=== PATIENT | female | born 1995 | race Hispanic/Latino ===

== ENCOUNTER 2018-08-08 07:34 | Emergency (ER) | payer BC ==
[~2018-08-08] VITALS: Ht 152.4 cm; Wt 65.0 kg
[2018-08-08 08:17] LABS: HEMATOCRIT 43.8 % (37.0-47.0); HEMOGLOBIN 13.8 g/dl (12.0-16.0); IMMATURE GRANULOCYTES 0.5 % (0.0-5.0); MEAN CELL VOLUME 83.7 fL CALC (80.0-100.0); MEAN CORPUSCULAR HGB 26.4 pG CALC (26.0-32.0); MEAN CORPUSCULAR HGB CONC 31.5 g/L CALC (32.0-36.0); NEUT# 7.48 thou/uL (2.00-7.15); RED BLOOD COUNT 5.23 mill/uL (4.20-5.60); RED CELL DISTRI WIDTH 21.5 % (11.5-15.5)
[2018-08-08] MEDS ORDERED: ANTIBIOTIC (08:28)
[2018-08-08] MEDS ORDERED: FLUCONAZOLE100 MG PO (08:28)
[2018-08-08] MEDS ORDERED: INSULIN PUM1 (08:31)
[2018-08-08] MEDS ORDERED: INSULIN PUM2 (08:31)
[2018-08-08] MEDS ORDERED: CLINDAMYCIN300 M1 PO (08:32)
[2018-08-08 08:58] LABS: ALBUMIN 3.7 g/dL (3.2-5.0); ALKALINE PHOSPHATASE 73 u/l (38-126); AMYLASE < 30 u/l (30-110); ANION GAP 17 (6-22 (CALC)); BILIRUBIN, TOTAL 0.6 mg/dL (0.0-1.4); BUN 12 mg/dL (7-17); BUN/CREATININE RATIO 23 (12-20 (CALC)); CARBON DIOXIDE 21 mmol/l (22-30); CHLORIDE 102 mmol/l (95-108); CREATININE 0.5 mg/dL (0.5-1.0); GFR > 60 ML/MIN (>=60 (CALC)); GFR FOR AFR.AMER. > 60 ML/MIN (>=60 (CALC)); LIPASE 23 u/l (23-300); POTASSIUM 3.9 mmol/l (3.5-5.1); SGOT/AST 18 u/l (14-36); SODIUM 136 mmol/l (137-146); TOTAL PROTEIN 6.6 g/dL (6.3-8.2)
[2018-08-08] MEDS ORDERED: ZOFRAN ODT4 MG PO (09:05)
[2018-08-08 09:20] VITALS: BP 113/70
== END 2018-08-08 09:20 | disposition home or self-care (01) | DRG 639 ==
LOC: ED 07:34
PROVIDERS: Emergency Medicine
DX: E11.65 Type 2 diabetes mellitus with hyperglycemia (principal); Z79.4 Long term (current) use of insulin